=== PATIENT | female | born 1985 ===

== ENCOUNTER 2025-04-22 12:53 | Outpatient (AMB) | payer OTHER, SELFPAY ==
--- OUTSIDE RECORDS SUMMARY | 2025-04-22 12:55 | XMS_ITS | Clinical Summary ---
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 4 Active famotidine (PEPCID) 20 mg tablet Take 1 Tablet by mouth at bedtime for 180 days. 3 Active fluticasone propionate (FLONASE) 50 mcg/actuation nasal spray Administer 2 sprays into each nostril 1 (one) time each day. 3 Active ivabradine (Corlanor) 5 mg tablet TAKE HALF A TABLEY BY MOUTH TWICE DAILY 3 Active loratadine (CLARITIN) 10 mg tablet Take 1 tablet (10 mg total) by mouth 1 (one) time each day. 2 Active metoprolol tartrate (LOPRESSOR) 25 mg tablet Take 1 tablet (25 mg total) by mouth 2 (two) times a day. 4 Active pantoprazole (PROTONIX) 20 mg EC tablet TAKE 1 TABLET BY MOUTH EVERY MORNING (BEFORE BREAKFAST) 4 Active solifenacin (Vesicare) 10 mg tablet daily. 8 Active Active Problems Problem Noted Date Diagnosed Date Vulvar irritation 05/16/2023 Overview (09/23/2024): Last Assessment & Plan: Likely irritant dermatitis. No evidence of infection. Will send yeast culture. Encouraged to soak and seal with coconut oil for comfort in the meantime. Benign breast cyst in female, left 10/24/2022 Overview (09/23/2024): 10/22/2022 dx mammogram and sono Impression: No mammographic evidence of malignancy. 0.8 x 1.3 x 0.5 cm cyst corresponds to the mammographic finding in the left breast. Dense breasts 12/29/2020 Sinus tachycardia 12/27/2020 Allergic rhinitis 11/19/2019 Hyperactivity of bladder 02/16/2018 Overview (09/23/2024): Seeing urology GAIL II (cervical intraepithelial neoplasia II) 0 12/24/2012 Overview (09/23/2024): Colpo biopsy 01/12/13 GAIL 2, but so no treatment. Repeat Pap normal. Repeat one year 05/2014 was normal but subsequent Pap HGSIL and colpo HGSIL with neg ECC 05/02/14. LEEP done 06/03/14 - GAIL 1 found with free margins. Repeat Pap 12/02/14 - normal with neg HPV. Repeat 6 to 12 months, then in 12 months again, then if normal routine screen q 3 yr. 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 ; symptoms of urgency and intermittent dysuria persist ; pelvic U/S 01/05 normal; Abdominal CT 06/06 -normal [ No kidney stone , hydronephrosis] Follow up urology 2009 Immunizations Name Administration Dates Next Due HPV, Quadrivalent 06/30/2009,11/14/2006,09/12/20 06 Hep B, Unspecified 09/08/2009 Influenza Quadravalent, MDCK , 0.5ml, preservative free (Flucelvax) 6mo and older 08/05/2023,06/03/2019 Influenza Quadrivalent, 0.5m l, preservative free (Fluarix; FluLaval; Fluzone) ages 6mo and older (Afluria) 3yo and older 06/08/2018 Influenza trivalent, 0.5mL, preservative free (Fluarix; FluLaval; Fluzone) ages 6mo and older (Afluria) 3 years and older 06/02/2020,05/27/2017,05/24/2016,2014,08/10/2013,09/27/2012,06/06/2011,0 06/09/2009,07/06/2008,07/20/2007 Influenza, Unspecified 06/29/2021,2017,05/27/2017,2014,07/11/2014 MMR, measles mumps and rubel la Live (Priorix; M-M-R II) 12mo and older 09/20/2009 PPD Test 09/08/2009,10/23/2005,02/23/2002 Rubella 09/07/2009 Tdap Tetanus diptheria acell ular pertussis (Boostrix; Adacel) 7yo and older 04/14/2013,07/06/2008 Varicella live (Varivax) 12m o and older 06/02/2007 Surgical History Surgery Date Site/Laterality Comments APPENDECTOMY PROCEDURE: HISTORICAL APPENDECTOMY TONSILLECTOMY PROCEDURE: HISTORICAL TONSILLECTOMY CERVICAL BIOPSY W/ LOOP ELEC TRODE EXCISION 06/03/2014 PROCEDURE: ID CONIZATION CERVIX W/WO D&C RPR ELTRD EXC BREAST BIOPSY Left PROCEDURE: BX BREAST; PERC NEEDLE CORE W/IMAG GUID; COMMENT: lt? side neg ESOPHAGOGASTRODUODENOSCOPY 06/27/2022 PROCEDURE: ID EGD TRANSORAL BIOPSY SINGLE/MULTIPLE; COMMENT: GERD/gastritis OTHER SURGICAL HISTORY 11/21/2022 PROCEDURE: UPPER GI ENDOSCOPY, REMOVE LESION; COMMENT: muslu -gastritis with biopsies Medical History Medical History Date Comments Heartburn DX:Heartburn Moderate dysplasia of cervix 01/31 DX: Moderate dysplasia of cervix; COMMENT: Colpo 08/03 negative, pap 01/02 normal Tachycardia, unspecified chronic sinus tachycard ia DX:Tachycardia, unspecified Headache(784.0) DX:Headache(784. 0) Urinary tract infection, sit e not specified 04/16/2007 DX:Urinary tract infection, site not specified; COMMENT: Question of stones in past Other specified personal history presenting hazards to health(V15.89) DX:Other specified personal history presenting hazards to health(V15.89); COMMENT: 02/01/05=GAIL I & II BRCA negative DX:BRCA negative Benign breast cyst in female , left 10/24/2022 Family History Medical History Relation Name Comments Breast cancer Aunt m aunt maternal great aunt Diabetes Father Other: elevated cholesterol Father Diabetes Father's side HTN Other: bone cancer Maternal Grandfather h eart disease also, HTN Diabetes Maternal Grandmother HTN Breast cancer Mother 40 53 Glaucoma Mother 40 53 Leukemia Other 1 3 second cousin s Colon cancer Other 2 maternal gr grandfather- Lung cancer Other 3 maternal half u ncle Breast cancer Other 4 mothers side gre at aunt Other: Other Paternal Grandfather Diabetes Paternal Grandmother at 63 Blindness Neg Hx Cataracts Neg Hx Macular degeneration Neg Hx Strabismus Neg Hx Relation Name Status Comments Aunt m aunt Alive Brother half Alive Father Alive mild cholestero l problem Father's side Maternal Grandfather Maternal Grandmother Mother 40 53 Alive breast cancer 3 3yo, lung cancer, htn- double mastectomy age58 Other 1 Other 2 Other 3 Other 4 mothers side great aunt Paternal Grandfather Paternal Grandmother Social History Tobacco Use Types Packs/Day Years Used Date Smoking Tobacco: Never Smokeless Tobacco: Never Alcohol Use Standard Drinks/Week Comments No 0 (1 standard drink = 0.6 oz pur e alcohol) Comments No Sex and Gender Information Value Date Recorded Sex Assigned at Female 11/05/2024 9:05 AM EST Legal Sex Female 9:48 PM EST Gender Identity Female 11/05/2024 9:05 AM EST Sexual Orientation Choose not to disclose 2024 9:05 AM EST Obstetrics History Para Term AB IAB SAB Ectopic Multiple Livin g Live Births 3 3 3 3 Date Outcome GA Total Labor Labor/2nd/3rd Weight Sex Type Anes PTL Catina A1 A5 Name Clin Term Term Term Last Filed Vital Signs Vital Sign Reading Time Taken Comments Blood Pressure 121/76 08/19/2023 3:17 PM EST Pulse 101 08/19/2023 3:17 PM EST Temperature - - Respiratory Rate - - Oxygen Saturation - - Inhaled Oxygen Concentration - - Weight 78.1 kg (172 lb 3.2 oz) 08/19/2023 3:17 P M EST Height 162.6 cm (5' 4 ) 08/05/2023 10:00 AM EST Body Mass Index 29.56 08/05/2023 10:00 AM EST Plan of Treatment Upcoming Encounters Date Type Department Care Team (Late st Contact Info) Description 09/21/2025 7:30 AM EST Office Visit Adult Medicine [address] [phone] Tiff Neely MD [address] [place] [id number] Health Maintenance Due Date Last Done Comments Hepatitis B Vaccines (2 of 3 - 19+ 3-dose series) 10/06/2009 09/08/2009 Social Influencers of Health Screening 09/07/2022 COVID-19 Vaccine ( - 2023- season) 2024 11/16/2021, 03/11/2021, 02/18/2021 Depression Screening 09/29/2024 01/02/2024 Influenza Vaccine (#1) 2025 , 08/05/2023, 06/07/2022, Additional history exists Breast Cancer Screening 11/06/2026 11/06/19, 10/11/2023, 10/22/2022, Additional history exists Cholesterol Screening (Lipid Panel) 08/05/2028 08/05/2023 Cervical Cancer Screening: HPV 08/19/2028 08/19/2023 DTaP,Tdap,and Td Vaccines (4 - Td or Tdap) 11/23/2031 11/23/2021, 04/14/2013, 07/06/2008 Varicella Vaccines Aged Out 06/02/2007 No longer eligible based on patient's age to complete this topic HPV Vaccines Completed 06/30/2009, 10/30, 09/12/2006 MMR Vaccines Aged Out 09/20/2009 No longer eligi ble based on patient's age to complete this topic HIV Screening Completed 06/17/2011 Hepatitis C Screening Completed 07/23/2016 HIB Vaccines Aged Out No longer eligi ble based on patient's age to complete this topic Hepatitis A Vaccines Aged Out No long er eligible based on patient's age to complete this topic IPV Vaccines Aged Out No longer eligi ble based on patient's age to complete this topic Meningococcal ACWY Vaccine Aged Out N o longer eligible based on patient's age to complete this topic Meningococcal B Vaccine Aged Out No l onger eligible based on patient's age to complete this topic Pneumococcal Vaccine: Pediatrics (0 to 5 Years) and At-Risk Patients (6 to 49 Years) Aged Out No longer eligible based on patient's age to complete this topic RSV Immunization Patients Under 20 months Aged Out No longer eligible based on patient's age to complete this topic Procedures Procedure Name Priority Date/Time Associated Diagnosis Comments MG MAMMO DIGITAL SCREENING W ALFONSO BILAT Routine 11/06/2024 10:34 AM EST Encounter for screening mammogram for breast cancer DEPRESSION SCREENING Routine 01/02/2024 HPV Routine 08/19/2023 LIPID PANEL Routine 08/05/2023 HEPATITIS C SCREENING Routine 07/23/2016 HIV SCREENING Routine 06/17/2011 from Last 3 Months or Most Recently Relevant to Health Maintenance Results * MG Mammo Digital Screening w Alfonso bilat (11/06/2024 10:34 AM EST) Anatomical Region Laterality Modality Breast Bilateral Mammography 11/08/2024 4:57 PM EST Impressions 11/08/2024 5:06 PM EST 1. No mammographic evidence of malignancy 2. Heterogeneous breast parenchyma BI-RADS CATEGORY: 2 - BENIGN RECOMMENDATION: Screening bilateral mammogram is recommended in 1 year. Patient may be eligible for screening breast MRI Mammo Location: [facility], [address] [place] [address], [id number], . -------- FINAL REPORT -------- Dictated By: Irma Flores Dictated Date: 11/08/2024 16:57 ET Assigned Physician: Irma Flores Reviewed and Electronically Signed By: Irma Flores Signed Date: 11/08/2024 17:06 ET Workstation ID: [id number] Transcribed By: Self Edit Transcribed Date: 11/08/2024 16:57 ET Narrative 11/08/2024 5:06 PM EST A BILATERAL DIGITAL 3D SCREENING MAMMOGRAPHY HISTORY: Routine screening. Family history of breast cancer in mother. COMPARISON: Multiple priors dating back to 08/12/2020 Technique: Bilateral full field digital mammography (3D) was performed using standard CC and MLO projections CAD was used to evaluate this mammogram. FINDINGS: Right: No suspicious masses, groups of microcalcification or areas of architectural distortion identified. Stable typically benign parenchymal asymmetries. Left: No suspicious masses, groups of microcalcification or areas of architectural distortion identified. Stable typically benign parenchymal asymmetries. BREAST DENSITY: C - The breasts are heterogeneously dense which may obscure small masses. Procedure Note Irma Flores MD - 11/08/2024 A BILATERAL DIGITAL 3D SCREENING MAMMOGRAPHY HISTORY: Routine screening. Family history of breast cancer in mother. COMPARISON: Multiple priors dating back to 08/12/2020 Technique: Bilateral full field digital mammography (3D) was performedusing standard CC and MLO projections CAD was used to evaluate this mammogram. FINDINGS: Right: No suspicious masses, groups of microcalcification or areas ofarchitectural distortion identified. Stable typically benign parenchymalasymmetries. Left: No suspicious masses, groups of microcalcification or areas ofarchitectural distortion identified. Stable typically benign parenchymalasymmetries. BREAST DENSITY: C - The breasts are heterogeneously dense which mayobscure small masses. IMPRESSION: 1. No mammographic evidence of malignancy 2. Heterogeneous breast parenchyma BI-RADS CATEGORY: 2 - BENIGN RECOMMENDATION: Screening bilateral mammogram is recommended in 1 year. Patient may beeligible for screening breast MRI Mammo Location: [facility], [address] [place] [address], [phone], . -------- FINAL REPORT -------- Dictated By: Irma Flores Dictated Date: 11/08/2024 16:57 ET Assigned Physician: Irma Flores Reviewed and Electronically Signed By: Irma Flores Signed Date: 11/08/2024 17:06 ET Workstation ID: [id number] Transcribed By: Self Edit Transcribed Date: 11/08/2024 16:57 ET Result [facility] Jovanna Fonseca CNM IMG BI PROCEDURES Final Result * Depression Screening (01/02/2024) [facility] Depression Screening abstracted [facility] Provider HEALTH MAINTENANCE Final Result * Cervical Cancer Screening: HPV (08/19/2023) [facility] Cervical Cancer Screening: HPV negative, abstracted Result [facility] Provider HEALTH MAINTENANCE Final Result * (ABNORMAL) Lipid panel (08/05/2023) [facility] LDL/HDL Ratio 4 0 - 4 Triglycerides 183(A) 0 - 150 mg/dL Cholesterol 190 0 - 200 mg/dL HDL 53 >=40 mg/dL LDL Cholesterol 101(A) 0 - 100 mg/dL Blood Venous blood specimen / Unknown Result [facility] Historical Provider LAB BLOOD ORDERABLES Simona l Result * Hepatitis C Screening (07/23/2016) [facility] Hepatitis C Screening abstracted [facility] Provider HEALTH MAINTENANCE Final Result * HIV Screening (06/17/2011) [facility] HIV Screening abstracted [facility] Provider HEALTH MAINTENANCE Final Result from Last 3 Months or Most Recently Relevant to Health Maintenance Insurance [facility] Care Teams 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
--- OUTSIDE RECORDS SUMMARY | 2025-04-22 12:55 | XMS_ITS ---
Author Name [facility] Organization Unknown Care Team Organization Name Specialty Phone Email Start Date End Da te [facility] Tiff Irene Primary Care 07/02/2023 05/17/2024 [facility] Steff Perez Primary Care 08/06/20222023
--- NOTE | 2025-04-22 12:56 | AM.OFFWIN_ITS ---
Intake Vital Signs 04/22/25 13:03 Height 5 ft 4 in Weight 169 lb BMI 29.0 BP 112/84 Blood Pressure Location Lt brachial Position Sitting Pulse 88 Pulse Source Pulse Oximeter Temp 98.0 F Temp Source Oral Pulse Oximetry (%) 100 Oxygen Delivery Method Room Air Intake Visit Reasons: EP pain when urinating, abdominal pain on RT side Intake Note: presents with RT sided flank pain radiating into low mid abdominal pain, pain and pressure with urinating, discomfort in vaginal area Allergies haloperidol (From Haldol) Allergy (Intermediate, Verified 04/22/25 13:08) tachycardia neomycin Allergy (Mild, Verified 04/22/25 13:08) Rash metoclopramide (From Reglan) Adverse Reaction (Mild, Verified 04/22/25 13:08) tachycardia HPI HPI Comments History of Present Illness Details History - The patient is a 40-year-old female pr esenting with burning with urination and concerns of a possible UTI x 2 days. - Reports lower abdominal pain and right -sided lower back pain radiating to the front, with increased urinary frequency and urgency. - History of recurrent urinary tract inf ections and overactive bladder, with past kidney stones managed without surgery. - Previous diagnoses of bacterial vagino sis and yeast infections, treated with medication. - Admits to clear-white discharge, not c hunky discharge; reports irritation and itchiness on labia - Denies malodorous vagina, fevers - Not sexually active, with no recent ch anges in hygiene products, and has a history of ovarian cysts. - LMP April 10, 2025. Physical Exam General: Cooperative, healthy appearing, comfortable, no acute distress and well developed Orientation: Patient oriented x3 Limitations: No limitations Head: Normal to inspection Ears: Hearing grossly normal bilaterally Nose: Normal External nose present Face and sinus: Normal facial exam Mouth: normal, moist oral mucosa Eyes: Appearance normal, both eyes and all related structures Neck: Normal visual inspection and Yes full ROM Respiratory: Normal respiratory effort and able to speak in complete sentences. : erythema on labia, no edema, rashes or abnormal discharge, negative whiff Skin: no rashes or lesions noted Neuro: Patient oriented x3 Back/spine: negative CVA bilaterally Extremities: moving all extremities normally Review of Systems Const All systems reviewed & are unremarkable except as noted in HPI and below Physical Exam Vital Signs: Last Vital Signs Temp 98.0 F 04/22/25 13:03 Pulse 88 04/22/25 13:03 BP 112/84 04/22/25 13:03 Pulse Ox 100 04/22/25 13:03 Oxygen Delivery Method Room Air 04/22/25 13:03 BMI result Body Mass Index 29.0 Assessment & Plan Assessment & Plan (1) UTI (urinary tract infection): Code(s): N39.0 - Urinary tract infection, site not specified Qualifiers: Urinary tract infection type: acute cystitis Hematuria presence: without hematuria Qualified Code(s): N30.00 - Acute cystitis without hematuria Plan: Plan Patient was informed and verbally consented to the use of an ambient scribe for clinic note documentation during this visit Lower Urinary Tract Symptoms - Will send urine culture as UA negative for infection or blood. - Initiate antibiotic therapy for suspected urinary tract infection based on symptoms. - Perform a swab test to rule out bacterial vaginosis and yeast infection. Will treat as needed - History Of Kidney Stones and ovarian cysts, monitor and if increasing lower abdominal pain, back pain or blood in urine, please go to the ED. (2) Vaginal discharge: Code(s): N89.8 - Other specified noninflammatory disorders of vagina Plan: as above Orders: Orders Bacterial Vaginosis Panel Today N89.8 - Other specified noninflammatory disorders of vagina Urine Culture Today N39.0 - Urinary tract infection, site not specified Medications: New cefuroxime axetil 500 mg PO Q12H 10 tabs 0RF Coding Level of Care Code New Pt Level 3 (15165) Diagnoses Acute cystitis without hematuria N30.00 Urinary tract infection type: acute cystitis Hematuria presence: without hematuria Vaginal discharge N89.8
[2025-04-22 13:03] VITALS: BP 112/84; PULSE 88; TEMP 36.7; O2SAT 100; BMI 29.0
== END 2025-04-22 14:23 | disposition home or self-care (01) ==
PROVIDERS: Visit Provider Physician Assistant
DX: N30.00 Acute cystitis without hematuria (principal); N89.8 Other specified noninflammatory disorders of vagina; Z13.9 Encounter for screening, unspecified

== ENCOUNTER 2025-04-22 12:53 | Outpatient (REF) | payer OTHER, SELFPAY ==
[2025-04-23 11:51] LABS: Bacterial Vaginosis PCR NEGATIVE (Negative); Candida Group PCR NOT DETECTED (Not Detect); Candida glab krusei PCR NOT DETECTED (Not Detect); Trichomonas vaginalis PCR NOT DETECTED (Not Detect)
== END 2025-04-22 12:54 | disposition home or self-care (01) ==
LOC: HO.LAB 12:53
PROVIDERS: Physician Assistant
DX: N30.00 Acute cystitis without hematuria (principal); N89.8 Other specified noninflammatory disorders of vagina; R10.13 Epigastric pain; R30.9 Painful micturition, unspecified
CPT/HCPCS: 81003; 81515; 87086; 99202

== ENCOUNTER 2025-06-23 14:01 | Outpatient (AMB) | payer OTHER, SELFPAY ==
--- NOTE | 2025-06-23 14:09 | AM.OFFWIN_ITS ---
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 walk [facility] clinic with c/o Vaginal pain, itching and tenderness/burning for 1 week now. Denies any vaginal discharged or foul Odor. Pt is not sexually active for 2 years and still Gets her periods every month. Denies any Urinary symptoms. She was treated for UTI back in 04/2025 with Abx due to vaginal and Urinary symptoms. Urinalysis was negative and urine culture showed no growth. Vaginal Panel was negative for BV/Yeast/Trich. [facility] Medical History (Updated 06/23/25 @ 14:46 by Mraika Aviles NP) Vaginal atrophy Review of Systems Const All systems reviewed & are unremarkable except as noted in HPI and below Physical Exam Vital Signs: Last Vital Signs Temp 98.2 F 06/23/25 14:15 Pulse 89 06/23/25 14:15 Resp 16 06/23/25 14:15 BP 124/84 06/23/25 14:15 Pulse Ox 97 06/23/25 14:15 Oxygen Delivery Method Room Air 06/23/25 14:15 BMI result Body Mass Index 30.0 Const General: no acute distress Nutritional Appearance: overweight Orientation/consciousness: patient oriented x3 GI Inspection: Yes obesity Palpation (GI): Soft to palpation, not firm, nontender, no guarding and not rigid Auscultation: normal bowel sounds External Female Exam: normal external appearance, externally tender, No external swelling, No lesion and tender Speculum Exam - Vagina: vagina atrophic, erythematous and tenderness Speculum Exam - Cervix: Cervical os open and nontender Bimanual exam- vagina & uterus: uterine size normal, No Cervical tenderness present and no cervical motion tenderness OB/external & speculum: Cervical os open Neuro General: patient oriented x3, gait normal and moves all extremities Psych Speech and movement: Normal speech and movement present Affect: Anxious affect present Results AMB Urinalysis, Automated UA Leukoctes 0 Bryan/uL Last Edit by Trinitycarol LechugayesJIM on 06/23/25 14:2 7 UA Nitrite Negative Last Edit by Trinitycarol LunasJIM on 06/23/25 14:27 UA Urobilinogen 0.2 mg/dL Last Edit by Trinitycarol LechugayesJIM on 06/23/25 14:27 UA Protein 0 mg/dL Last Edit by Trinitycarol Arambula MA on 06/23/25 14:27 UA pH 7.5 Last Edit by Trinitycarol Fulton RalfIJM on 06/23/25 14: UA Blood 0 Ronald/uL Last Edit by Trinitycarol Arambula MA on 06/23/25 14:27 UA Specific [place] 1.010 Last Edit by Trinitycarol Fulton RalfJIM on 06/23/25 14: UA Ketone Negative Last Edit by Trinitycarol LechugayesJIM on 06/23/25 14: UA Bilirubin 0 mg/dL Last Edit by Trinitycarol Fulton RalfJIM on 06/23/25 14: UA Glucose 0 mg/dL Last Edit by Trinitycarol LechugayesJIM on 06/23/25 14:27 Results Reviewed Results Reviewed: Laboratory Last Values Urine pH (Auto) 7.5 06/23/25 14: Specific [place] (Auto) 1.010 06/23/25 14: Urine Protein (Auto) 0 mg/dL 06/23/25 14: Glucose (UA)(Auto) 0 mg/dL 06/23/25 14: Urine Ketones (Auto) Negative 06/23/25 14: Urine Blood (Auto) 0 Ronald/uL 06/23/25 14: Urine Nitrite (Auto) Negative 06/23/25 14: Urine Bilirubin (Auto) 0 mg/dL 06/23/25 14: Urine Urobilinogen (Auto) 0.2 mg/dL 06/23/25 14:25 Leukocyte Esterase (Auto) 0 Bryan/uL 06/23/25 14:25 Assessment & Plan Assessment & Plan (1) Vaginal atrophy: Code(s): N95.2 - Postmenopausal atrophic vaginitis Plan: Patient Has Vaginal Dryness Ordered Revaree (Vaginal Moisturizer) F/U with Area Coordinator for Tx of Vaginal Atrophy with HRT if indicated. Orders: Orders AMB Urinalysis Automated Today Z13.9 - Encounter for screening, unspecified Bacterial Vaginosis Panel Today N95.2 - Postmenopausal atrophic vaginitis Medications: New sodium hyaluronate (Revaree) 1 supp vaginal Q3D 10 ea 4RF Vaginal dryness N95.2 - Postmenopausal atrophic vaginitis Coding Level of Care Code Est Pt Level 4 (45608) Diagnoses Vaginal atrophy N95.2 Time Spent (min) 20
[2025-06-23 14:15] VITALS: BP 124/84; PULSE 89; RESP 16; TEMP 36.8; O2SAT 97
== END 2025-06-23 14:48 | disposition home or self-care (01) ==
PROVIDERS: Visit Provider Nurse Practitioner Family
DX: N95.2 Postmenopausal atrophic vaginitis (principal); Z13.9 Encounter for screening, unspecified

== ENCOUNTER 2025-06-23 14:01 | Outpatient (REF) | payer OTHER, SELFPAY ==
[2025-06-23 17:50] LABS: Bacterial Vaginosis PCR NEGATIVE (Negative); Candida Group PCR NOT DETECTED (Not Detect); Candida glab krusei PCR NOT DETECTED (Not Detect); Trichomonas vaginalis PCR NOT DETECTED (Not Detect)
== END 2025-06-23 14:02 | disposition home or self-care (01) ==
LOC: HO.LAB 14:01
PROVIDERS: Nurse Practitioner Family
DX: N95.2 Postmenopausal atrophic vaginitis (principal); Z20.2 Contact with and (suspected) exposure to infections with a predominantly sexual mode of transmission
CPT/HCPCS: 81003; 81515; 99212